=== PATIENT | male | born 1990 | race Caucasian/White ===

== ENCOUNTER 2022-11-21 17:28 | Emergency (ER) | payer OTHER ==
[2022-11-21 18:20] VITALS: BP 120/83; PULSE 93; RESP 20; TEMP 98.4
--- NOTE | 2022-11-21 18:23 | ED ---
Back Pain HPI - General Source: patient, RN notes reviewed Limitations: no limitations - History of Present Illness MD Complaint: back pain Place: work <Rosa Jamil - Last Filed: 11/21/22 18:20> - General Source: patient, RN notes reviewed - History of Present Illness MD Complaint: back pain -: hour(s) (2) Place: work Severity scale (1-10): 6 <Gregory Oakes - Last Filed: 11/21/22 23:25> - General Chief Complaint: Back Pain/Injury Stated Complaint: [facility] - Back Injury Time Seen by Provider: 11/21/22 19:25 - History of Present Illness Initial Comments: This is a 32 year old male who presents to the emergency department for lower back pain. He was sent in by his job per [facility] requirements. States that he was driving a [place] and developed lower back pain. Denies any loss of bowel/bladder control or saddle anesthesia. (Rosa Jamil) This is a well-appearing 32-year-old male presents with complaints of low back pain after backing his high low into a pile of pallets at work today around 5pm. He was sent by his employer for evaluation. No other injuries. No loss of consciousness. Has been able to ambulate with a steady gait. Patient states he does have a history of chronic low back pain. (Gregory Oakes) - Related Data Previous Rx's Medication Instructions Recorded Cyclobenzaprine [Flexeril] 10 mg PO TID PRN #15 tab 11/21/22 Ibuprofen [Motrin] 600 mg PO Q8HR PRN #30 tab 11/21/22 Lidocaine 5% Patch [Lidoderm] 1 patch TOPICAL DAILY 14 Days #14 11/21/22 patch Allergies Allergy/AdvReac Type Severity Reaction Status Date / Time Penicillins Allergy Rash/Hives Verified 11/21/22 18:21 Review of Systems ROS Other: All systems not noted in ROS Statement are negative. <Rosa Jamil - Last Filed: 11/21/22 18:20> ROS Other: All systems not noted in ROS Statement are negative. <Gregory Oakes - Last Filed: 11/21/22 23:25> ROS Statement: Those systems with pertinent positive or pertinent negative responses have been documented in the HPI. Past Medical History Past Medical History: Seizure Disorder History of Any Multi-Drug Resistant Organisms: None Reported Past Surgical History: No Surgical Hx Reported Past Psychological History: No Psychological Hx Reported Smoking Status: Current every day smoker Past Alcohol Use History: Occasional Past Drug Use History: Marijuana <Rosa Jamil - Last Filed: 11/21/22 18:20> General Exam Limitations: no limitations <Rosa Jamil - Last Filed: 11/21/22 18:20> General appearance: alert, in no apparent distress Head exam: Present: atraumatic Neck exam: Absent: tenderness, meningismus Respiratory exam: Absent: respiratory distress Cardiovascular Exam: Present: regular rate Neurological exam: Present: alert, oriented X3, normal gait Psychiatric exam: Present: normal affect, normal mood Skin exam: Present: warm, dry, normal color. Absent: cyanosis, diaphoretic <Gregory Oakes - Last Filed: 11/21/22 23:25> Course Vital Signs 11/21/22 18:17 Temperature 98.4 F Pulse Rate 93 Respiratory 20 Rate Blood Pressure 120/83 O2 Sat by Pulse 99 Oximetry Medical Decision Making <Gregory Oakes - Last Filed: 11/21/22 23:25> - Medical Decision Making Vital signs are stable Patient is able to ambulate. No bowel or bladder incontinence. No saddle anesthesia. He was given Tylenol Motrin and Lidoderm patch for his pain. He was offered a shot of Norflex and declined stating he has to drive. X-ray interpreted by me shows no evidence of acute fracture, normal alignment. Radiologist interpretation no acute fracture, mild multilevel disc degeneration He was prescribed Flexeril, Motrin and Lidoderm patches. Directed to follow up with his primary care doctor and return to the emergency room with any new or concerning symptoms. Case discussed with Selina Was pt. sent in by a medical professional or institution? @ -[facility] Did you speak to anyone other than the patient for history? @ -No Did you review nursing and triage notes? @ -Yes I agree Were old charts reviewed? @ -No Differential Diagnosis? @ -Differential Back Pain: Strain, zoster, cauda equina syndrome, discitis, fracture, subluxation, disc herniation, DJD, spinal stenosis, this is not meant to be an all-inclusive list. X-rays interpreted by me (1pt min.)? @ -Yes as above What testing was considered but not performed? (CT, X-rays, U/S, labs)? Why? @No What meds were considered but not given? Why? @ -Norflex was offered and patient declined Did you discuss the management of the patient with other professionals? @ -No Did you reconcile home meds? @ -No Was smoking cessation discussed for >3mins.? @ -No Was critical care preformed (if so, how long)? @ -No Were there social determinants of health that impacted care today? How? (Homelessness, low income, unemployed, alcoholism, drug addiction, transportation, low edu. Level, literacy, decrease access to med. care, skilled nursing, rehab)? @ -No Was there de-escalation of care discussed even if they declined? (Discuss DNR or withdrawal of care, Hospice)? @ -No What co-morbidities impacted this encounter? (DM, HTN, Smoking, COPD, CAD, Cancer, CVA, Hep., AIDS, mental health diagnosis, sleep apnea, morbid obesity)? @ -None Was patient admitted / discharged? @ -Discharged Undiagnosed new problem with uncertain prognosis? @ -[none] Drug Therapy requiring intensive monitoring for toxicity (Heparin, Nitro, Insulin, Cardizem)? @ -No Were any procedures done? @ -No Diagnosis/symptom? @ -Acute low back strain Acute, or Chronic, or Acute on Chronic? @ -Acute Uncomplicated (without systemic symptoms) or Complicated (systemic symptoms)? @ -Uncomplicated Side effects of treatment? @ -[none] Exacerbation, Progression, or Severe Exacerbation] @ -[no] Poses a threat to life or bodily function? @ -[no] (Gregory Oakes) Disposition <Rosa Jamil - Last Filed: 11/21/22 18:20> Is patient prescribed a controlled substance at d/c from ED?: No Time of Disposition: 19:38 <Gregory Oakes - Last Filed: 11/21/22 23:25> Clinical Impression: Low back pain Disposition: HOME SELF-CARE Condition: Good Instructions (If sedation given, give patient instructions): Acute Low Back Pain (ED) Additional Instructions: Use Flexeril and Lidoderm patches as prescribed, Motrin and Tylenol as needed for pain or discomfort. Follow-up with the primary care doctor next week. Return to the emergency room with any new or concerning symptoms. Prescriptions: Cyclobenzaprine [Flexeril] 10 mg PO TID PRN #15 tab PRN Reason: Muscle Spasm Lidocaine 5% Patch [Lidoderm] 1 patch TOPICAL DAILY 14 Days #14 patch Ibuprofen [Motrin] 600 mg PO Q8HR PRN #30 tab PRN Reason: Pain Referrals: None,Stated [Primary Care Provider] - 1-2 days
--- NOTE | 2022-11-21 19:22 | XR ---
EXAMINATION TYPE: XR lumbar spine 2 or 3V DATE OF EXAM: 11/21/2022 6:50 PM INDICATION: Patient age:Male; 32 years old; Reason for study: Pain after injury; COMPARISON: None TECHNIQUE: Frontal, lateral and coned in L5-S1 lateral views of the spine. FINDINGS: No evidence of any acute osseous pathology. No evidence of loss of vertebral body height i s seen. There is normal alignment of the lumbar vertebral bodies. Mild scattered disc space narrowing . Multilevel marginal osteophyte formation throughout the visualized spine. There is facet joint arth ropathy throughout the spine. Neural foramen are grossly intact. IMPRESSION: 1. No acute fracture. 2. Mild multilevel disc degeneration.
[2022-11-21] MEDS ORDERED: IBUPROFEN 600 MG TAB PO STA (19:33)
[2022-11-21] MEDS ORDERED: ACETAMINOPHEN TAB 500 MG TAB PO STA (19:33)
[2022-11-21] MEDS ORDERED: LIDOCAINE 5% PATCH TOPICAL SCH (19:45)
== END 2022-11-21 19:52 | disposition home or self-care (01) ==
LOC: EC 17:28
DX: M54.50 Low back pain, unspecified (principal); F17.200 Nicotine dependence, unspecified, uncomplicated; F12.90 Cannabis use, unspecified, uncomplicated; Z88.0 Allergy status to penicillin
CPT/HCPCS: 72100; 99283

== ENCOUNTER → 2023-12-23 | Outpatient (CLI) | payer OTHER ==
--- NOTE | 2023-12-24 12:58 | MR ---
EXAMINATION TYPE: MR sacroiliac joints wo con DATE OF EXAM: 12/23/2023 6:59 PM CLINICAL INDICATION:Male, 33 years old with history of M46.1 SACROILIITIS; PHH, Sacroiliitis, pain arnaldo th down legs. COMPARISON: None TECHNIQUE: Triplane multisequence imaging was performed of the pelvis. IV Contrast: cc none FINDINGS: Reproductive: Prostate: Unremarkable. Seminal vesicle's: Unremarkable. Testes: Unremarkable. Bladder: Unremarkable. Bowel: Unremarkable as visualized. Peritoneum: No free fluid or adenopathy. Lymph nodes: No evidence of adenopathy. Vasculature: Unremarkable. Musculoskeletal: Bone marrow signal is within normal signal intensity. Height T2's low T1 signal in t he bone immediately adjacent to the iliac bones bilaterally. No mass or organizing fluid collection i dentified. Abdominal wall/soft tissues: Unremarkable. IMPRESSION: Bilateral symmetrical bony edema adjacent to the sacroiliac joints compatible with sacroiliitis.
== END | disposition home or self-care (01) ==
LOC: RADMRIMAIN 17:54
PROVIDERS: ATTEND Internal Medicine Rheumatology
DX: M46.1 Sacroiliitis, not elsewhere classified (principal); M79.604 Pain in right leg; M79.605 Pain in left leg; R60.0 Localized edema
CPT/HCPCS: 72195